=== PATIENT | female | born 1965 | race Caucasian/White ===

== ENCOUNTER 2024-12-18 09:14 | Outpatient (AMB) | payer BC, SELFPAY ==
--- NOTE | 2024-12-18 09:18 | MHC.OFFVIS ---
Vital Signs 12/18/24 09:21 Height 5 ft 8 in Weight 231 lb BMI 35.1 BP 118/72 Blood Pressure Location Rt brachial Position Sitting Pulse 71 Pulse Source Pulse Oximeter Pulse Oximetry (%) 96 Oxygen Delivery Method Room Air Intake Visit Reasons: ENP-Tremor of both hands Intake Note: patient referred by [facility] for bilateral hand tremors. Allergies No Known Allergies Allergy (Verified 12/18/24 09:22) Medication List - Last Reconciled 12/18/24 by Aneta Lee MD atorvastatin 20 mg PO DAILY blood sugar diagnostic (Accelaloxuch Verio test strips) As directed dapagliflozin propanediol (Farxiga) 10 mg PO DAILY fluoxetine 10 mg PO DAILY glipizide 5 mg PO BID lancets (SatmetrixTouch Delica Plus Lancet) As directed metformin ER 500 mg PO BID omega 8-sda-uhb-fish oil 100-160-1,000 mg (Fish Oil) caps PO HPI Comments Details: 59y/o Right handed female comes for evaluation of michaela hand tremors. she started noticing tremors in her hands about 2 years ago. It is usually in spring and summer when she works outside in her garden . She describes as postural action tremors after she does weeding or any work outside . It lasts few minutes after she comes inside the house - she usually notices when she tries to drink water or juice. No head tremors voice tremors, no stiffness or slowness. she denies neck pain , no family h/o tremors. she also reports dizziness when she stands up after weeding. she has h/o sleep apnea on CPAP. [facility] Medical History (Updated 12/18/24 @ 10:18 by Aneta Lee MD) Occasional tremors Skin lesion of scalp Allergic rhinitis Palpitations Chronic bilateral low back pain Heart murmur Anemia Depression with anxiety Surgical History [place] teeth removed H/O endoscopy H/O: hysterectomy Hx of colonoscopy Family History Father CAD (coronary artery disease) Heart disease Brother Thyroid cancer Maternal Aunt Pancreatic cancer Social History Alcohol intake: never Patient Tobacco Use Status: Never used Tobacco Physical Exam Vital Signs: Last Vital Signs Pulse 71 12/18/24 09:21 BP 118/72 12/18/24 09:21 Pulse Ox 96 12/18/24 09:21 Oxygen Delivery Method Room Air 12/18/24 09:21 BMI result Body Mass Index 35.1 Const General: cooperative, healthy appearing, comfortable and no acute distress Nutritional Appearance: obese Orientation/consciousness: patient oriented x3 Eyes Pupils: Equal, round and reactive pupils present Neck Neck: Yes no meningeal signs Neuro Other: No rest or action tremors Mild tremors when she was grasping my fingers General: patient oriented x3, gait normal, tone normal, moves all extremities, no meningeal signs and no focal motor deficits Cranial nerves: Yes Facial sensation intact/muscles of mastication intact, Yes Equal, round and reactive pupils present, Yes Bilaterally intact EOM present, Yes Nystagmus not present, Yes Normal facial strength present, Yes Midline tongue present, Yes Symmetric palate elevation present and Yes Ability to bilaterally elevate shoulders present Cognition (Neuro): normal cognition Gait exam (Neuro): Normal gait present Motor exam (neuro): 5/5 motor strength present throughout and Normal motor muscle tone present throughout Deep tendon reflexes (DTR's): Right triceps reflex intensity grade: 2+, Left triceps reflex intensity grade: 2+, Rt Biceps (C5, C6): 2+, Left biceps reflex intensity grade: 2+, Right brachioradialis reflex intensity grade: 2+, Left brachioradialis reflex intensity grade: 2+, Right patellar reflex intensity grade: 2+ and Left patellar reflex intensity grade: 2+ Coordination: [id number] test normal, [id number] test normal and tandem gait normal Assessment & Plan Assessment & Plan (1) Occasional tremors: Comment: exaggerated physiological tremors Code(s): R25.1 - Tremor, unspecified Category: Medical Plan No evidence of parkinsons on todays exam. Suggested clinical follow up if tremors worsen Suggested to maintain hydration during gardening to prevent postural dizziness. Coding Level of Care Code New Pt Level 4 (18488) Diagnoses Occasional tremors R25.1
[2024-12-18 09:21] VITALS: BP 118/72; PULSE 71; O2SAT 96; BMI 35.1
--- OUTSIDE RECORDS SUMMARY | 2024-12-18 09:57 | XMS_ITS | Encounter Summary ---
Author Organization [facility] Address [address] [place] [id number] Care Team Providers Care Logistics Director Name Role Phone Zana Lee MD Primary Care Provider [phone] Donte Cheung MD Unavailable Rashid Louis OD Unavailable [phone] Encounter Details Date Type Department Care Team (Late Contact Info) Description 06/25/[address] [facility] Endocrinology [address] [phone] Ashutosh Garcia RN [address] [place] [address] Social History Tobacco Use Types Packs/Day Years Used Date Smoking Tobacco: Never Smokeless Tobacco: Never Alcohol Use Standard Drinks/Week Comments Yes 0 (1 standard drink = 0.6 oz pur e alcohol) rare Sex and Gender Information Value Date Recorded Sex Assigned at Female 12/10/2023 10:31 AM EST Gender Identity Female 12/10/2023 10:31 AM EST Sexual Orientation Heterosexual (straight) 12/10 10:31 AM EST documented as of this encounter Plan of Treatment Upcoming Encounters Date Type Department Care Team (Late Contact Info) Description 02/11/2025 3:15 PM EDT Office Visit [facility] Endocrinology [address] [phone] Donte Cheung MD [address] [place] [id number] documented as of this encounter Visit Diagnoses Not on filedocumented in this encounter Care Teams Logistics Director Relationship Specialty Start Date End Date Zana Lee MD [address] [place] [address] PCP - General Internal Medicine 08/09/18 Donte Cheung MD [address] [place] [address] Endocrinology 12/10/23 Rashid Louis OD [address] [place] [address] 05/09/24 documented as of this encounter
--- OUTSIDE RECORDS SUMMARY | 2024-12-18 09:57 | XMS_ITS ---
Author Name [facility] Organization Unknown Results Test Name/Text Value Interpretation Date Range Source Lipase SerPl-cCnc 47unit/L Normal [id number] 11 - 82 [facility] AST SerPl-cCnc 28unit/L Normal [id number] 5 - 40 [facility] ALT SerPl-cCnc 45unit/L Normal [id number] 7 - 52 [facility] Creat SerPl-mCnc 0.73mg/dL Normal [id number] 0.5 - 1 [facility] CO2 SerPl-sCnc 29mmol/L Normal [id number] 24 - 32 [facility] eGFRcr SerPlBld CKD-EPI 2020 96mL/min/1.73m2 Normal [id number] - [facility] Potassium SerPl-sCnc 4.1mmol/L Normal [id number] 3.5 - 5.1 [facility] Bilirub SerPl-mCnc 0.6mg/dL Normal [id number] 0.3 - 1 [facility] Calcium SerPl-mCnc 9.3mg/dL Normal [id number] 8.4 - 10 .2 [facility] BUN SerPl-mCnc 11mg/dL Normal [id number] 7 - 17 [facility] ALP SerPl-cCnc 74unit/L Normal [id number] 34 - 104 [facility] Chloride SerPl-sCnc 104mmol/L Normal [id number] 98 - 10 7 [facility] BUN/Creat SerPl 15.1 Normal [id number] 12 - 20 [facility] Albumin SerPl-mCnc 4.2g/dL Normal [id number] 3.5 - 5 [facility] Prot SerPl-mCnc 7.7g/dL Normal [id number] 6.4 - 8.5 [facility] Sodium SerPl-sCnc 139mmol/L Normal [id number] 135 - 145 [facility] Anion Gap SerPl-sCnc 6 Normal [id number] 5 - 14 [facility] Glucose SerPl-mCnc 108mg/dL Normal [id number] 70 - 199 [facility] pH Ur 7pH Normal [id number] 5 - 8 [facility] H Prot Ur Strip-mCnc Negative Normal [id number] - [facility] Leukocyte esterase Ur Ql Strip Negative Normal [id number] - [facility] Glucose Ur Ql >=1000 Abnormal [id number] - [facility] Nitrite Ur Ql Negative Normal [id number] - [facility] Hgb Ur Ql Negative Normal [id number] - [facility] H Color Ur Yellow Normal [id number] - [facility] H Clarity Ur Clear Normal [id number] - [facility] Ketones Ur-mCnc Negative Normal [id number] - [facility] Sp Gr Ur 1.01 Normal [id number] 1.005 - 1.03 [facility] Monocytes # Bld Auto 0.59K/mcL Normal [id number] 0 - 0.8 [facility] Neutrophils # Bld Auto 3.72K/mcL Normal [id number] 1.8 - 7.8 [facility] Eosinophil # Bld Auto 0.12K/mcL Normal [id number] 0 - 0.5 [facility] MCHC RBC Auto-mCnc 35.4g/dL Normal [id number] 32 - 36 [facility] Monocytes/leuk NFr Bld Auto 8.7% Normal [id number] 2 - 12 [facility] Basophils # Bld Auto 0.03K/mcL Normal [id number] 0 - 0.2 [facility] WBC # Bld Auto 6.8K/mcL Normal [id number] 4 - 10.5 [facility] Hct VFr Bld Auto 39.6% Normal [id number] 37 - 47 [facility] RDW RBC Auto-Rto 12.4% Normal [id number] 12.1 - 16. 2 [facility] PMV Bld Auto 9.9FL Normal [id number] 7.4 - 11.4 [facility] Eosinophil/leuk NFr Bld Auto 1.8% Normal [id number] 0 - 6 [facility] MCH RBC Qn Auto 29.2pcg Normal [id number] 25 - 33 [facility] Basophils/leuk NFr Bld Auto 0.4% Normal [id number] 0 - 2 [facility] Lymphocytes # Bld Auto 2.33K/mcL Normal [id number] 1 - 3.2 [facility] RBC # Bld Auto 4.8M/mcL Normal [id number] 4.2 - 5.4 [facility] Neutrophils/leuk NFr Bld Auto 54.6% Normal [id number] 44 - 74 [facility] Platelet # Bld Auto 300K/mcL Normal [id number] 150 - 4 50 [facility] MCV RBC Auto 82.5FL Normal [id number] 78 - 100 [facility] Lymphocytes/leuk NFr Bld Auto 34.2% Normal [id number] 20 - 48 [facility] Hgb Bld-mCnc 14g/dL Normal [id number] 12.5 - 16 [facility] History of Medication Use Medication Directions Dispensed Refills Start Date End Date Stat us FLUoxetine HCl, PMDD, (SARAFEM) 10 MG Tab tablet Take 1 tablet by mouth. active glipizide 5 mg tablet ac tive fenofibrate 160 mg tablet Take 1 tablet every day by oral route. 4 completed Farxiga 10 mg tablet act irma atorvastatin 20 mg tablet active Farxiga 10 mg tablet act irma Fish Oil 120 mg-180 mg capsule Take by oral route. 4 completed azithromycin 250 mg tablet TAKE 2 TABLET BY MOUTH ON DAY ONE THEN 1 TABLET BY MOUTH DAILY UNTIL GONE 4 completed Glucagon 1 MG/0.2ML Solution Auto-injector Inject 1 mg under the skin as needed (Admininister for severe low BG). 06/29/2024 active Tricor 145 mg tablet Take 1 tablet every day by oral route. 7 completed cyanocobalamin (VITAMIN B-12) 100 mcg tablet Take 0.5 tablets (50 mcg total) by mouth. active omega-3 fatty acids-fish oil 300-500 mg capsule Take 1 capsule by mouth 1 (one) time each day. active Gynazole-1 2 % vaginal cream Insert by vaginal route for 1 day. 05/03/2016 7 completed dapagliflozin (Farxiga) 10 MG tablet Take 1 tablet (10 mg total) by mouth every morning. 05/12/2024 active multivitamin (MULTIPLE VITAMINS ORAL) Take 1 tablet by mouth 1 (one) time each day. active atorvastatin 20 mg tablet active OneTouch Delica Plus Lancet 33 gauge USE DIRECTED TO TEST 2 TIMES A DAY 4 active cholecalciferol (VITAMIN D-3) 25 mcg (1,000 unit) tablet Take 1 tablet (1,000 Units total) by mouth 1 (one) time each day. active amoxicillin 875 mg-potassium clavulanate 125 mg tablet TAKE 1 TABLET BY MOUTH EVERY 12 HOURS FOR 7 DAYS 4 completed clindamycin phosphate 1 % topical solution APPLY TOPICALLY TO THE SCALP EVERY NIGHT THEN NEEDED active amoxicillin 875 mg-potassium clavulanate 125 mg tablet TAKE 1 TABLET BY MOUTH EVERY 12 HOURS FOR 7 DAYS 4 completed cyanocobalamin, vitamin B-12, 1,000 mcg lozenge Take by mouth daily. active Farxiga 5 mg tablet 4 active fenofibrate (LOFIBRA) 160 mg tablet Take 1 tablet (160 mg total) by mouth. 12/09/2019 active metformin ER 500 mg tablet,extended release 24 hr active glipizide 5 mg tablet ac tive Zyrtec 10 mg capsule Take by oral route. Take by oral route. completed Farxiga 5 mg tablet 4 completed triamcinolone acetonide 40 mg/mL suspension for injection Take 40 mg by injection route. 02/22/2024 4 active glipiZIDE (GLUCOTROL) 5 MG tablet Take 1 tablet (5 mg total) by mouth 2 (two) times a day before meals. 02/05/2024 active Continuous Glucose Sensor (FreeStyle Carol 3 Sensor) [facility] USE DIRECTED& CHANGE EVERY 14 DAYS 11/04/2023 active oxycodone 5 mg tablet 1 tablet every 6-8 hours as needed, do not start until after surgery 10/06/2024 4 completed meloxicam 15 mg tablet 1 tablet every day in the morning for 7 days, Start the day after surgery 4 completed Prozac 10 mg capsule Take 1 capsule every day by oral route. Take 1 capsule every day by oral route. completed cephalexin 500 mg capsule 1 capsule every 6 hours, start evening of surgical procedure. do not take prior to surgery. 4 completed Allergies Allergen Reaction Severity Comment Documented Date Source Statu s NO KNOWN ALLERGY (SITUATION) 01/02/2014 [facility] active Problems Problem Status Onset Date Problem Type Date of Resolution Source Sleep apnea active ProblemAct [facility] Calcific tendinitis of right shoulder active 2024-06-03 ProblemAct [facility] Low HDL (under 40) active 2018-05-[address] Problem[address] [facility] Anxiety active 2017-12-03 ProblemAct [facility] Depression active 2017-12-03 Problem[address] [facility] H Palpitations active 2015-05-17 ProblemAct [facility] Tinea cruris active ProblemAct [facility] H Vaginitis active ProblemAct [facility] Tendinitis of right biceps brachii active 2024-08-29 ProblemAct [facility] Impingement syndrome of right shoulder region active 2024-06-03 ProblemAct [facility] Chronic idiopathic urticaria active 2018-08-20 ProblemAct [facility] Type 2 diabetes mellitus with hyperglycemia, without long-term current use of insulin active 2024-05-12 ProblemAct [facility] Type 2 diabetes mellitus without complication, without long-term current use of insulin active 2024-05-12 ProblemAct [facility] Pain of right shoulder joint active 2024-01-28 ProblemAct [facility] Obstructive sleep apnea syndrome active 2016-12-15 ProblemAct [facility] Allergic rhinitis active 2017-12-03 ProblemAct [facility] Calculus of gallbladder without cholecystitis without obstruction active EncounterDiagnosisAct [facility] Right upper quadrant abdominal pain active EncounterDiagnosisAct [facility] Chronic low back pain active 2017-12-03 ProblemAct [facility] Murmur active 2018-05-30 ProblemAct [facility] Immunizations Vaccine Date Source Lot Number Status Influenza, MDCK, quadrivalent, PF 07/25/2022 [facility] [id number] completed Influenza, split virus, quadrivalent, PF 08[facility]03/20[id number] Tdap 10/13/2022 [facility] [id number] completed Influenza, recombinant, trivalent, PF 08/23/2020 [facility] [id number] completed zoster recombinant 11/10/2022 [facility] [id number] [facility] zoster recombinant 03/02/2023 [facility] [id number] [facility]
--- OUTSIDE RECORDS SUMMARY | 2024-12-18 09:58 | XMS_ITS | Clinical Summary ---
Author Organization [facility] Address [address] [place] [address] Phone Care Team Providers Care Tipple Supervisor Name Role Phone Zana Lee MD Primary Care Provider [phone] Allergies No known active allergies Medications dapagliflozin propanediol (FARXIGA) 10 mg tablet Take by mouth. Active cyanocobalamin (VITAMIN B-12) 100 mcg tablet Take 0.5 tablets (50 mcg total) by mouth. Active metFORMIN XR (GLUCOPHAGE-XR) 500 mg 24 hr tablet Take 1 tablet (500 mg total) by mouth. Active fenofibrate (LOFIBRA) 160 mg tablet Take 1 tablet (160 mg total) by mouth. 12/09/2019 Active cetirizine (ZyrTEC) 10 mg tablet Take 1 tablet (10 mg total) by mouth. Active cholecalciferol (VITAMIN D-3) 25 mcg (1,000 unit) tablet Take 1 tablet (1,000 Units total) by mouth 1 (one) time each day. Active omega-3 fatty acids-fish oil 300-500 mg capsule Take 1 capsule by mouth 1 (one) time each day. Active multivitamin (MULTIPLE VITAMINS ORAL) Take 1 tablet by mouth 1 (one) time each day. Active famotidine (PEPCID) 20 mg/2 mL oral solution Take by mouth. Active FLUoxetine (PROzac) 10 mg capsule Take 1 capsule (10 mg total) by mouth. Active cyanocobalamin, vitamin B-12, 1,000 mcg lozenge Take by mouth daily. Active Active Problems Problem Noted Date Diagnosed Date Low HDL (under 40) 05/30/2018 Murmur 05/30/2018 Chronic low back pain 12/03/2017 Depression 12/03/2017 Anxiety 12/03/2017 Allergic rhinitis 12/03/2017 Obstructive sleep apnea syndrome 12/15/2016 Palpitations 05/17/2015 Surgical History Surgery Date Site/Laterality Comments HYSTERECTOMY AGE 46 PROCEDURE:HYSTERECTOMY Medical History Medical History Date Comments History of ETT 2007 DX:History of ET T;COMMENT:9 min 95% nl History of echocardiogram 2005 DX:His tory of echocardiogram;COMMENT:lv fx nl History of ETT 10/10 DX:History of ET T;COMMENT:nl ett 11 min 90% History of echocardiogram 10/10 DX:His tory of echocardiogram;COMMENT:lv hyperdynamic no outflow History of loop recorder 11/11 DX:Hist ory of loop recorder;COMMENT:neg HLD (hyperlipidemia) DX:HLD (hyp erlipidemia) Sleep apnea DX:Sleep apnea;C OMMENT:cpap History of stress test 05/2017 DX:Histor y of stress test;COMMENT:10.5 min 85% pmhr no cp or ecg change Family History Medical History Relation Name Comments Thyroid disease Brother Coronary artery disease Other 1 Diabetes Other 2 BRCA 1/2 Neg Hx Breast cancer Neg Hx Cancer Neg Hx Colon cancer Neg Hx Endometrial cancer Neg Hx Ovarian cancer Neg Hx Relation Name Status Comments Brother Other 1 Other 2 Social History Tobacco Use Types Packs/Day Years Used Date Smoking Tobacco: Never Smokeless Tobacco: Never Alcohol Use Standard Drinks/Week Comments No 0 (1 standard drink = 0.6 oz pur e alcohol) Comments Unknown Sex and Gender Information Value Date Recorded Sex Assigned at Not on file Legal Sex Female 8:31 PM EST Gender Identity Not on file Sexual Orientation Not on file Obstetrics History Last Filed Vital Signs Vital Sign Reading Time Taken Comments Blood Pressure 137/75 09/06/2024 11:54 AM EST Pulse 73 09/06/2024 11:54 AM EST Temperature 36.9 ??C (98.4 ??F) 09/06/2024 11:[address] Respiratory Rate 18 09/06/2024 11:54 AM EST Oxygen Saturation 98% 09/06/2024 11:54 AM EST Inhaled Oxygen Concentration - - Weight 103 kg (227 lb) 09/06/2024 11:54 AM EST Height 172.7 cm (5' 8 ) 09/06/2024 11:54 AM EST Body Mass Index 34.52 09/06/2024 11:54 AM EST Plan of Treatment Upcoming Encounters Date Type Department Care Team (Late st Contact Info) Description 01/02/2025 2:00 PM EST Office Visit Pulmonolgy - [place] [address] [facility] [address] [place] [phone] Kai Lee MD [address] [facility] [address] [place] [address] Health Maintenance Due Date Last Done Comments Diabetes: Annual Foot Exam 1977 Diabetes: Annual Retina Eye Exam 1977 Hepatitis B Vaccines (1 of 3 - 19+ 3-dose series) 1986 Cervical Cancer Screening: Pap Smear 02/10/1988 Pneumococcal Vaccine: 50+ Years (1 of 1 - PCV) 2017 Cholesterol Screening (Lipid Panel) 09/30/2022 Colorectal Cancer Screening: Colonoscopy 09/30/2022 Depression Screening 09/30/2022 HIV Screening 09/30/2022 Hepatitis C Screening 09/30/2022 Social Influencers of Health Screening 09/30/2022 COVID-19 Vaccine ( season) 2024 02/06/2021, 01/16/2021 Diabetes: Blood Sugar Control Test (HGBA1C) 09/06/2024 Diabetes: Annual GFR (Glomerular Filtration Rate) 09/06/2025 09/06/2024 Diabetes: Annual Urine Albumin-Creatinine Ratio (uACR) 09/24/2025 09/24/2024, 05/08/2024 Breast Cancer Screening 03/31/2026 03/31/20 24, 03/30/2023, 03/22/2022, Additional history exists DTaP,Tdap,and Td Vaccines (2 - Td or Tdap) 10/13/2032 10/13/2022 Zoster Vaccines Completed 03/02/2023, 11/10/2022 Influenza Vaccine Completed 08/11/2024, , 08/03/2021, Additional history exists HIB Vaccines Aged Out No longer eligi ble based on patient's age to complete this topic HPV Vaccines Aged Out No longer eligi ble based on patient's age to complete this topic Hepatitis A Vaccines Aged Out No long er eligible based on patient's age to complete this topic IPV Vaccines Aged Out No longer eligi ble based on patient's age to complete this topic MMR Vaccines Aged Out No longer eligi ble based on patient's age to complete this topic Meningococcal ACWY Vaccine Aged Out N o longer eligible based on patient's age to complete this topic Meningococcal B Vacine Aged Out No lo nger eligible based on patient's age to complete this topic Pneumococcal Vaccine: Pediatrics (0 to 5 Years) and At-Risk Patients (6 to 64 Years) Aged Out No longer eligible based on patient's age to complete this topic RSV Immunization Patients Under 20 months Aged Out No longer eligible based on patient's age to complete this topic Varicella Vaccines Aged Out No longer eligible based on patient's age to complete this topic Procedures Procedure Name Priority Date/Time Associated Diagnosis Comments COMPREHENSIVE METABOLIC PANEL STAT 09/06/2024 12:14 PM EST MAMMOGRAM SCREENING BILATERAL 3D MAURO WITH CAD Routine 03/31/2024 11:16 AM EDT Encounter for screening mammogram for malignant neoplasm of breast from Last 3 Months or Most Recently Relevant to Health Maintenance Results * Comprehensive metabolic panel (09/06/2024 12:14 PM EST) Sodium 139 135 - 145 mmol/L LAB CHEMISTRY METHOD 09/06/2024 12:44 PM [facility] Potassium 4.1 3.5 - 5.1 mmol/L LAB CHEMISTRY METHOD 09/06/2024 12:44 PM [facility] Chloride 104 98 - 107 mmol/L LAB CHEMISTRY METHOD 09/06/2024 12:44 PM [facility] CO2 29 24 - 32 mmol/L LAB CHEMISTRY METHOD 09/06/2024 12:44 PM [facility] Anion Gap 6 5 - 14 LAB CHEMISTRY METHOD 09/06/2024 12:44 PM [facility] Glucose 108 70 - 199 mg/dL LAB CHEMISTRY METHOD 09/06/2024 12:44 PM [facility] BUN 11 7 - 17 mg/dL LAB CHEMISTRY METHOD 09/06/2024 12:44 PM [facility] Creatinine 0.73 0.50 - 1.00 mg/dL LAB CHEMISTRY METHOD 09/06/2024 12:44 PM [facility] eGFR 96 >=60 mL/min/1. 73m2 LAB CHEMISTRY METHOD 09/06/2024 12:44 PM [facility] Comment:Calculation based on the??Chronic Kidney Disease Epidemiology Collaboration (CKD-EPI) equation refit??without adjustment for race. BUN/Creatinine Ratio 15.1 12.0 - 20.0 LAB CHEMISTRY METHOD 09/06/2024 12:44 PM [facility] Calcium 9.3 8.4 - 10.2 mg/dL LAB CHEMISTRY METHOD 09/06/2024 12:44 PM [facility] AST (SGOT) 28 5 - 40 unit/L LAB CHEMISTRY METHOD 09/06/2024 12:44 PM [facility] ALT (SGPT) 45 7 - 52 unit/L LAB CHEMISTRY METHOD 09/06/2024 12:44 PM [facility] Alkaline Phosphatase 74 34 - 104 unit/L LAB CHEMISTRY METHOD 09/06/2024 12:44 PM [facility] Total Protein 7.7 6.4 - 8.5 g/dL LAB CHEMISTRY METHOD 09/06/2024 12:44 PM [facility] Albumin 4.2 3.5 - 5.0 g/dL LAB CHEMISTRY METHOD 09/06/2024 12:44 PM [facility] Total Bilirubin 0.6 0.3 - 1.0 mg/dL LAB CHEMISTRY METHOD 09/06/2024 12:44 PM EST [facility] Blood Venous blood specimen / Unknown Venipuncture / Unknown 09/06/2024 12:14 PM EST 09/06/2024 12:20 PM EST Chris Ritter MD LAB BLOOD ORDERABLES Final Result [facility] [address] [place] [address], * MAMMOGRAM SCREENING BILATERAL 3D MAURO WITH CAD (03/31/2024 11:16 AM EDT) Anatomical Region Laterality Modality Mammography 02/28/2024 10:3 0 AM EDT Narrative 04/02/2024 11:04 AM EDT This is a summary report. The complete report is available in the patient's medical record. If you cannot access the medical record, please contact the sending organization for a detailed fax or copy. EXAM PERFORMED: ??MAMMOGRAM SCREENING BILATERAL 3D MAURO WITH CAD EXAM HISTORY: Screening Exam. No palpable abnormality. COMPARISON: 2022, 2021, 2020, 2019 TECHNIQUE: Bilateral full field digital mammography with synthesized (2D) the and Tomosynthesis (3-D) was performed using standard CC and MLO projections. Mammogram was interpreted in correlation with CAD and Tomosynthesis. BREAST DENSITY: There are scattered fibroglandular densities (approximately 25- 50% glandular, B). FINDINGS: No suspicious masses, grouped microcalcifications, or architectural distortion are identified. Typically benign asymmetries. No axillary lymphadenopathy. IMPRESSION: 1. No mammographic evidence of malignancy 2. Scattered fibroglandular densities BI-RADS Category 2: Benign 3342F RECOMMENDATION: Routine mammography screening in one year. The results of this examination have been communicated to the patient through a lay letter in accordance with the Mammography Quality Standards Act. Report reviewed and signed by : Dr. Alexis Shelley MD on 04/02/2024 11:04 AM. Workstation Name - [id number] Procedure Note Alexis Shelley MD - 08/12/2024 This is a summary report. The complete report is available in thepatient's medical record. If you cannot access the medical record, pleasecontact the sending organization for a detailed fax or copy. EXAM PERFORMED: MAMMOGRAM SCREENING BILATERAL 3D MAURO WITH CAD EXAM HISTORY: Screening Exam. No palpable abnormality. COMPARISON: 2022, 2021, 2020, 2019 TECHNIQUE: Bilateral full field digital mammography with synthesized (2D)the and Tomosynthesis (3-D) was performed using standard CC and MLOprojections. Mammogram was interpreted in correlation with CAD andTomosynthesis. BREAST DENSITY: There are scattered fibroglandular densities(approximately 25- 50% glandular, B). FINDINGS: No suspicious masses, grouped microcalcifications, orarchitectural distortion are identified. Typically benign asymmetries. Noaxillary lymphadenopathy. IMPRESSION: 1. No mammographic evidence of malignancy 2. Scattered fibroglandular densities BI-RADS Category 2: Benign 3342F RECOMMENDATION: Routine mammography screening in one year. The results of this examination have been communicated to the patientthrough a lay letter in accordance with the Mammography Quality StandardsAct. Report reviewed and signed by : Dr. Alexis Shelley MD on 04/02/2024 11:04AM. Workstation Name - [id number] Jaden Sim MD IMG BI PROCEDURES Final Resu lt from Last 3 Months or Most Recently Relevant to Health Maintenance Insurance [facility] Care Teams Tipple Supervisor Relationship Specialty Start Date End Date Zana Lee MD PCP - General Internal Medicine 05/17/15
--- OUTSIDE RECORDS SUMMARY | 2024-12-18 09:58 | XMS_ITS | Encounter Summary ---
Author Organization [facility] Address [address] [place] [id number] Care Team Providers Care Forest Nursery Supervisor Name Role Phone Zana Lee MD Primary Care Provider [phone] Dnote Cheung MD Unavailable Rashid Louis OD Unavailable [phone] Encounter Details Date Type Department Care Team (Late st Contact Info) Description 09/06/2024 Scanned Document [address] [place] [phone] Provider, Generic Social History Tobacco Use Types Packs/Day Years [...] Care Team (Late st Contact Info) Description 02/11/2025 3:15 PM EDT Office Visit [facility] Endocrinology [address] [place] [phone] Donte Cheung MD [address] [place] [address] [address] [place] [address] documented as of this encounter Visit Diagnoses Not on filedocumented in this encounter Care Teams Forest Nursery Supervisor Relationship Specialty Start Date End Date Zana Lee MD [address] [place] [address] PCP - General Internal Medicine 08/09/18 Donte Cheung MD [address] [place] [address] Endocrinology 12/10/23 Rashid Louis OD [address] [place] [address] 05/09/24 documented as of this encounter
--- OUTSIDE RECORDS SUMMARY | 2024-12-18 09:58 | XMS_ITS | Encounter Summary ---
Author Organization [facility] Address [address] [place] [address] Care Team Providers Care Mid Teacher Name Role Phone Zana Lee MD Primary Care Provider [phone] Donte Chueng MD Unavailable Rashid Louis OD Unavailable [phone] Encounter Details Date Type Department Care Team (Late Contact Info) Description 01/14/2024 Telephone [facility] [address] [place] [phone] Sarah Beltran [address] [place] [phone] Social History Tobacco Use Types Packs/Day Years [...] AM EST documented as of this encounter Miscellaneous Notes * Telephone Encounter - Sarah Beltran - 01/14/2024 10:09 AM EDT MNT FU (30min) with Sarah: 03/04/24, 8AM documented in this encounter Plan of Treatment Upcoming Encounters Date Type Department Care Team (Late st Contact Info) Description 02/11/2025 3:15 PM EDT Office Visit [facility] Endocrinology [place] [address] [place] [address] Donte Cheung MD [address] [place] [address] documented as of this encounter Visit Diagnoses Not on filedocumented in this encounter Care Teams Mid Teacher Relationship Specialty Start Date End Date Zana Lee MD [address] [place] [address] PCP - General Internal Medicine 08/09/18 Donte Cheung MD [address] [facility] [address] [place] [address] Endocrinology 12/10/23 Rashid Louis OD [address] [place] [address] 05/09/24 documented as of this encounter
--- OUTSIDE RECORDS SUMMARY | 2024-12-18 09:58 | XMS_ITS | Clinical Summary ---
Author Organization [facility] Address [address] [place] [address] Care Team Providers Care Wigs Salesperson Name Role Phone Zana Lee MD Primary Care Provider [phone] Allergies No known active allergies Medications Medication Sig Dispensed Refills Start Date End Date Status FLUoxetine (PROZAC) 10 MG capsule Take 10 mg by mouth daily. 0 Active IRON, FERROUS GLUCONATE, PO Take 1 tablet by mouth daily. 0 Active [place]-3 Fatty Acids (FISH OIL) 1000 MG CAPS Take 1 capsule by mouth daily. 0 Active Multiple Vitamins-Minerals (MULTIVITAMIN PO) Take 1 tablet by mouth daily. 0 Active cetirizine (ZYRTEC) 10 MG tablet Take 10 mg by mouth 2 (two) times a day. 0 Active Famotidine (PEPCID PO) Take by mouth. 0 Active cholecalciferol (VITAMIN D3) 1000 UNITS tablet Take 2,000 Units by mouth daily. 0 Active Cyanocobalamin (VITAMIN B 12) 100 MCG LOZG Take by mouth daily. 0 Active UNABLE TO FIND C-Pap at HS 0 Active fenofibrate (TRIGLIDE) 160 MG tablet TAKE 1 TABLET DAILY 90 tablet 3 12/09/2019 Active Active Problems Problem Noted Date Diagnosed Date Murmur 05/30/2018 Low HDL (under 40) 05/30/2018 Palpitations 05/17/2015 Family History Medical History Relation Name Comments Thyroid disease Brother Coronary artery disease Unknown 1 Diabetes Unknown 2 BRCA 1/2 Neg Hx Breast cancer Neg Hx Cancer Neg Hx Colon cancer Neg Hx Endometrial cancer Neg Hx Ovarian cancer Neg Hx Relation Name Status Comments Brother Unknown 1 Unknown 2 Social History Tobacco Use Types Packs/Day Years Used Date Smoking Tobacco: Never Smokeless Tobacco: Never Alcohol Use Standard Drinks/Week Comments No 0 (1 standard drink = 0.6 oz pur e alcohol) Sex and Gender Information Value Date Recorded Sex Assigned at Not on file Gender Identity Not on file Sexual Orientation Not on file Job Start Date Occupation Industry Not on file Not on file Not on file Last Filed Vital Signs Vital Sign Reading Time Taken Comments Blood Pressure 120/80 06/25/2019 9:28 AM EDT Pulse 65 06/25/2019 9:28 AM EDT Temperature - - Respiratory Rate - - Oxygen Saturation 99% 06/25/2019 9:28 AM EDT Inhaled Oxygen Concentration - - Weight 102.5 kg (226 lb) 06/25/2019 9:28 AM EDT Height 175.3 cm (5' 9 ) 06/25/2019 9:28 AM EDT Body Mass Index 33.37 06/25/2019 9:28 AM EDT Plan of Treatment Health Maintenance Due Date Last Done Comments Hepatitis B Vaccines (1 of 3 - 3-dose series) 1967 Hepatitis C Screening 1967 COVID-19 Vaccine (#1) 1967 Depression Screening 1979 BMI Counseling 1985 Preventative Health Evaluation 1985 DTap / Tdap / Td (1 - Tdap) 1986 Cervical Cancer Screening (Pap Smear) 02/10/1988 Colon Cancer Screening (Colonoscopy) 02/10/2012 Shingrix-Zoster Vaccine (1 of 2) 2017 Influenza Vaccine (#1) 2024 Breast Cancer Screening (Mammogram) 03/31/2026 03/31/2024, 03/30/2023, 03/22/2022, Additional history exists Pneumococcal Vaccine Aged Out No long er eligible based on patient's age to complete this topic RSV Ped < 20 months Aged Out No longe r eligible based on patient's age to complete this topic Advance Directives For more information, please contact: [phone] Documents on File Type Date Recorded Patient Lead Auditor Expl anation Power of Sole Tier 05/17/2015 3:56 PM Care Teams Wigs Salesperson Relationship Specialty Start Date End Date Zana Lee MD [address] [facility], [place] [address] PCP - General Internal Medicine 05/17/15
--- OUTSIDE RECORDS SUMMARY | 2024-12-18 09:58 | XMS_ITS | Clinical Summary ---
Author Organization [facility] Address [address] [place] [address] Care Team Providers Care Double Reamer Operator Name Role Phone Zana Lee MD Primary Care Provider [phone] Donte Cheung MD Unavailable Rashid Louis OD Unavailable [phone] Allergies Active Allergy Reactions Criticality Noted Date Comments Beef-Derived Drug Products Hives Medium 4 Egg-Derived Products Diarrhea Low 12/10/2023 Medications Medication Sig Dispensed Refills Start Date End Date Status cetirizine (ZyrTEC) 10 MG tablet Take 1 tablet (10 mg total) by mouth. Active cholecalciferol (VITAMIN D3) 1000 units tablet Take 1 tablet (1,000 Units total) by mouth. Active famotidine (PEPCID) 20 MG tablet Take 1 tablet (20 mg total) by mouth. Active fenofibrate (TRIGLIDE) 160 MG tablet Take 1 tablet (160 mg total) by mouth. Active Multiple Vitamins-Minerals (MULTIVITAMIN ADULT) Tab Take 1 tablet by mouth. Active omega-3 fatty acids (FISH OIL) 1000 MG Cap capsule Take 1 capsule (1,000 mg total) by mouth. Active Calcium Carb-Cholecalciferol (Calcium 1000 + D) 1000-20 MG-MCG Tab Active FLUoxetine (PROzac) 20 MG capsule Active Lancets (OneTouch Delica Plus [id number]) Misc USE DIRECTED TO TEST 2 TIMES A DAY 11/04/2023 Active Probiotic Product (PROBIOTIC-10 PO) Active Glucagon 1 MG/0.2ML Solution Auto-injectorIndicat ions:Type 2 diabetes mellitus without complication, without long-term current use of insulin ([facility]) Inject 1 mg under the skin as needed (Admininister for severe low BG). 0.4 mL 3 06/29/2024 Active dapagliflozin (Farxiga) 10 MG tabletIndications:Ty pe 2 diabetes mellitus with hyperglycemia, without long-term current use of insulin ([facility]) Take 1 tablet (10 mg total) by mouth every morning. 90 tablet 1 09/30/2024 Active Continuous Glucose Sensor (FreeStyle Carol 3 Sensor) MiscIndications:Type 2 diabetes mellitus with hyperglycemia, without long-term current use of insulin ([facility]) USE DIRECTED& CHANGE EVERY 14 DAYS 2 each 1 09/30/2024 Active metFORMIN (GLUCOPHAGE-XR) 500 MG 24 hr tabletIndications:Ty pe 2 diabetes mellitus with hyperglycemia, without long-term current use of insulin ([facility]) 2 tablets with dinner. Swallow whole. Do not crush, break or chew. 90 tablet 1 09/30/2024 Active glipiZIDE (GLUCOTROL) 5 MG tabletIndications:Ty pe 2 diabetes mellitus with hyperglycemia, without long-term current use of insulin ([facility]) Take 1 tablet (5 mg total) by mouth 2 (two) times a day before meals. 90 tablet 1 09/30/2024 Active Continuous Glucose Sensor (FreeStyle Carol 3 Plus Sensor) MiscIndications:Type 2 diabetes mellitus with hyperglycemia, without long-term current use of insulin ([facility]) USE DIRECTED& CHANGE EVERY 14 DAYS 2 each 1 12/05/2024 Active Active Problems Problem Noted Date Diagnosed Date Type 2 diabetes mellitus wit hout complication, without long-term current use of insulin 05/12/2024 Type 2 diabetes mellitus wit h hyperglycemia, without long-term current use of insulin 05/12/2024 Chronic idiopathic urticaria 08/20/2018 Encounters Date Type Department Care Team Description 12/12/2024 [facility] Endocrinology [address] [phone] Donte Cheung MD 12/11/2024 [facility] Endocrinology [address] [phone] Donte Cheung MD Type 2 diabetes mellitus with hyperglycemia, without long-term current use of insulin (HCC) 12/05/2024 Refill [facility] Endocrinology [address] [address] Donte Cheung MD Type 2 diabetes mellitus with hyperglycemia, without long-term current use of insulin (HCC) (Primary Dx) 10/05/2024 Orders Only [facility] Endocrinology [address] [phone] Donte Cheung MD 10/01/2024 Telephone [facility] Endocrinology [address] [phone] Donte Cheung MD MSOT BI 09/30/2024 3:30 PM EST Office Visit [facility] Endocrinology [address] [address] Donte Cheung MD Type 2 diabetes mellitus with hyperglycemia, without long-term current use of insulin ([facility]) (Primary Dx) 09/30/2024 Travel 09/30/2024 Refill [facility] Endocrinology [address] [address] Donte Cheung MD Type 2 diabetes mellitus with hyperglycemia, without long-term current use of insulin ([facility]) from Last 3 Months Family History Medical History Relation Name Comments Lupus Maternal Aunt Diabetes type II Maternal Uncle Diabetes type II Paternal Grandmother Relation Name Status Comments Father Alive Maternal Aunt Maternal Uncle Mother Alive Paternal Grandmother Social History Tobacco Use Types Packs/Day Years Used Date Smoking Tobacco: Never Smokeless Tobacco: Never Tobacco Cessation:Counseling Given: Not Answered Alcohol Use Standard Drinks/Week Comments Yes 0 (1 standard drink = 0.6 oz pur e alcohol) rare Sex and Gender Information Value Date Recorded Sex Assigned at Female 12/10/2023 10:31 AM EST Gender Identity Female 12/10/2023 10:31 AM EST Sexual Orientation Heterosexual (straight) 12/10 10:31 AM EST Last Filed Vital Signs Vital Sign Reading Time Taken Comments Blood Pressure 113/66 09/30/2024 3:23 PM EST Pulse 64 09/30/2024 3:23 PM EST Temperature 36.2 ??C (97.2 ??F) 09/06/2024 10:[address] Respiratory Rate - - Oxygen Saturation 98% 09/30/2024 3:23 PM EST Inhaled Oxygen Concentration - - Weight 103 kg (227 lb) 09/30/2024 3:23 PM EST Height 172.7 cm (5' 8 ) 09/30/2024 3:23 PM EST Body Mass Index 34.52 09/30/2024 3:23 PM EST Plan of Treatment Upcoming Encounters Date Type Department Care Team (Late st Contact Info) Description 02/11/2025 3:15 PM EDT Office Visit [facility] Endocrinology [place] [address] [place] [address] Donte Cheung MD [address] [place] [address] Health Maintenance Due Date Last Done Comments Hepatitis C Virus Screening 1967 Ophthalmology Exam 1977 HIV Screening 02/10/1980 DTaP/Tdap/Td Vaccines (1 - Tdap) 1986 Hepatitis B Vaccines (1 of 3 - 19+ 3-dose series) 1986 Pneumococcal Vaccines 50+ (1 of 2 - PCV) 1986 Pap Smear (Ages 21-65) 02/10/1988 Mammogram 2007 Colonoscopy 02/10/2012 Zoster (Shingles) Vaccine (1 of 2) 2017 COVID-19 Vaccine (3 - 2023-2 5 season) 2024 02/06/2021, 01/16/2021 Hemoglobin A1C 03/24/2025 09/24/2024, 05/08/2024 Creatinine with GFR 09/24/2025 09/24/2024, Lipid Panel 09/24/2025 09/24/2024, 05/08/2024 Microalbumin/Creatinine Rati o Urine 09/24/2025 09/24/2024, 05/08/2024 Foot Exam 09/30/2025 09/30/2024, 05/12/2024 Influenza Vaccine Completed 08/11/2024, , 07/25/2022, Additional history exists Procedures Procedure Name Priority Date/Time Associated Diagnosis Comments MICROALBUMIN, CREATININE, URINE, RANDOM Routine 09/24/2024 9:25 AM EST Type 2 diabetes mellitus with hyperglycemia, without long-term current use of insulin (HCC) LIPID PANEL REFLEX DIRECT LDL Routine 09/24/2024 9:25 AM EST Type 2 diabetes mellitus with hyperglycemia, without long-term current use of insulin (HCC) HEMOGLOBIN A1C Routine 09/24/2024 9:25 AM EST Type 2 diabetes mellitus with hyperglycemia, without long-term current use of insulin (HCC) COMPREHENSIVE METABOLIC PANEL Routine 09/24/2024 9:25 AM EST Type 2 diabetes mellitus with hyperglycemia, without long-term current use of insulin (HCC) from Last 3 Months Results * (ABNORMAL) Lipid Panel Reflex Direct LDL (09/24/2024 9:25 AM EST) Pathologist [facility] Cholesterol, Total 162 <200 mg/dL [facility] Cholesterol, HDL 45(L) > OR = 50 mg/dL [facility] Triglycerides 217(H) <150 mg/dL [facility] Comment: If a non-fasting specimen was collected, consider repeat triglyceride testing on a fasting specimen if clinically indicated. Rosa et al. J. of Clin. Lipidol. 2015;9:129-169. LDL Cholesterol 86 mg/dL (calc) [facility] Comment: Reference range: <100 Desirable range <100 mg/dL for primary prevention; ?? <70 mg/dL for patients with CHD or diabetic patients with > or = 2 CHD risk factors. LDL-C is now calculated using the Edvin-Chaparrita calculation, which is a validated novel method providing better accuracy than the Friedewald equation in the estimation of LDL-C. Edvin HENSON et al. GLO. 2013;310(19): 9991-1773 (http://education.Libretto/faq/XGA571) Cholesterol/HDL Ratio 3.6 <5.0 (calc) [facility] Non HDL Chol. (LDL+VLDL) 117 <130 mg/dL (calc) [facility] Comment: For patients with diabetes plus 1 major ASCVD risk factor, treating to a non-HDL-C goal of <100 mg/dL (LDL-C of <70 mg/dL) is considered a therapeutic option. Blood Blood specimen / Unknown 09/24/2024 9:25 AM EST 09/24/2024 9:27 AM EST Narrative [facility] - 09/25/2024 12:[address] SHILOH TRENT FASTING:YES FASTING: YES Donte Cheung MD LAB BLOOD ORDERABLES Performing Organization Address [facility] de Phone Number [facility] [address] [place] [phone] * Microalbumin, Creatinine, Urine, Random (09/24/2024 9:25 AM EST) Pathologist [facility] Creatinine, Urine, Random 206 20 - 275 mg/dL [facility] Microalbumin, Urine, Random 2.0 See Note: mg/dL [facility] Comment: Reference Range: Reference Range Not established Microalbumin/Creat inine Ratio 10 <30 mg/g creat [facility] Comment: The ADA defines abnormalities in albumin excretion as follows: Albuminuria Category ?Result (mg/g creatinine) Normal to Mildly increased ?? <30 Moderately increased ? 30-299 Severely increased ? > OR = 300 The ADA recommends that at least two of three specimens collected within a 3-6 month period be abnormal before considering a patient to be within a diagnostic category. Urine Voided urine specimen / Unknown 09/24/2024 9:25 AM EST 09/24/2024 9:27 AM EST Narrative [facility] - 09/25/2024 12:[address] SHILOH TRENT FASTING:YES FASTING: YES Donte Cheung MD URINE ORDERABLES Performing Organization Address [facility]/State/ZIP Co de Phone Number [facility] [address] [place] [address] * (ABNORMAL) Hemoglobin A1C (09/24/2024 9:25 AM EST) Hemoglobin A1C 6.3(H) <5.7 % of total Hgb [facility] Comment: For someone without known diabetes, a hemoglobin A1c value between 5.7% and 6.4% is consistent with prediabetes and should be confirmed with a follow-up test. For someone with known diabetes, a value <7% indicates that their diabetes is well controlled. A1c targets should be individualized based on duration of diabetes, age, comorbid conditions, and other considerations. This assay result is consistent with an increased risk of diabetes. Currently, no consensus exists regarding use of hemoglobin A1c for diagnosis of diabetes for children. Blood Blood specimen / Unknown 09/24/2024 9:25 AM EST 09/24/2024 9:27 AM EST Narrative [facility] - 09/25/2024 12:23 AM EST [facility]; DR SHILOH RIVERA FASTING:YES FASTING: YES Donte Cheung MD LAB BLOOD ORDERABLES [facility] [address] [place] [phone] * (ABNORMAL) Comprehensive Metabolic Panel (09/24/2024 9:25 AM EST) Glucose 182(H) 65 - 99 mg/dL [facility] Comment: ? Fasting reference interval For someone without known diabetes, a glucose value >125 mg/dL indicates that they may have diabetes and this should be confirmed with a follow-up test. Blood Urea Nitrogen (BUN) 10 7 - 25 mg/dL [facility] Creatinine 0.71 0.50 - 1.03 mg/dL [facility] Creatinine w/ eGFR 99 > OR = 60 mL/min/1. 73m2 [facility] BUN/Creatinine Ratio SEE NOTE: (calc) [facility] Comment: ?? Not Reported: BUN and Creatinine are within ?? reference range. ? Sodium 137 135 - 146 mmol/L [facility] Potassium 4.5 3.5 - 5.3 mmol/L [facility] Chloride 99 98 - 110 mmol/L [facility] CO2 29 20 - 32 mmol/L [facility] Calcium 9.7 8.6 - 10.4 mg/dL [facility] Protein, Total 7.6 6.1 - 8.1 g/dL [facility] Albumin 4.3 3.6 - 5.1 g/dL [facility] Globulin 3.3 1.9 - 3.7 g/dL (calc) [facility] Albumin/Globuli n Ratio 1.3 1.0 - 2.5 (calc) [facility] Bilirubin, Total 0.7 0.2 - 1.2 mg/dL [facility] Alkaline Phosphatase 87 37 - 153 U/L [facility] Aspartate Aminotrans (AST) 17 10 - 35 U/L [facility] Alanine Aminotrans (ALT) 30(H) 6 - 29 U/L [facility] Blood Blood specimen / Unknown 09/24/2024 9:25 AM EST 09/24/2024 9:27 AM EST Narrative [facility] - 09/25/2024 12:23 AM EST [place]; DR SHILOH RIVERA FASTING:YES FASTING: YES Donte Cheung MD LAB BLOOD ORDERABLES [facility] [address] [place] [address] from Last 3 Months Care Teams Double Reamer Operator Relationship Specialty Start Date End Date Zana Lee MD [address] [place] [address] PCP - General Internal Medicine 08/09/18 Donte Cheung MD [address] [place] [address] Endocrinology 12/10/23 Rashid Louis OD [address] [place] [address] 05/09/24
--- OUTSIDE RECORDS SUMMARY | 2024-12-18 09:58 | XMS_ITS | Encounter Summary ---
Author Organization [facility] Address [address] [place] [id number] Care Team Providers Care Social Worker Psychiatric Name Role Phone Zana Lee MD Primary Care Provider [phone] Donte Cheung MD Unavailable Rashid Louis OD Unavailable [phone] Reason for Visit * Reason Comments Medication Refill Encounter Details Date Type Department Care Team (Late Contact Info) Description 12/11/2024 Refill [facility] Endocrinology [address] [phone] Donte Cheung MD [address] [place] [phone] Type 2 diabetes mellitus with hyperglycemia, without long-term current use of insulin (HCC) Social History Tobacco Use Types Packs/Day Years [...] Description 02/11/2025 3:15 PM EDT Office Visit [facility] Endocrinology [address] [address] Donte Cheung MD [address] [address] documented as of this encounter Visit Diagnoses Diagnosis Type 2 diabetes mellitus with hyperglycemia, without long-term current use of insulin (HCC) documented in this encounter Care Teams Social Worker Psychiatric Relationship Specialty Start Date End Date Zana Lee MD [address] [place] [address] PCP - General Internal Medicine 08/09/18 Donte Cheung MD [address] [address] Endocrinology 12/10/23 Rashid Louis OD [address] [place] [address] 05/09/24 documented as of this encounter
--- OUTSIDE RECORDS SUMMARY | 2024-12-18 09:58 | XMS_ITS | Encounter Summary ---
Author Organization [facility] Address [address] [place] [address] Care Team Providers Care Breaster Name Role Phone Zana Lee MD Primary Care Provider [phone] Donte Cheung MD Unavailable Rashid Louis OD Unavailable [phone] Encounter Details Date Type Department Care Team (Late st Contact Info) Description 09/06/2024 Scanned Document [address] [place] [phone] Provider, Generic Social History Tobacco Use [...] Office Visit [facility] Endocrinology [address] [place] [phone] Donte Cheung MD [address] [place] [address] [address] [place] [address] documented as of this encounter Visit Diagnoses Not on filedocumented in this encounter Care Teams Breaster Relationship Specialty Start Date End Date Zana Lee MD [address] [place] [address] PCP - General Internal Medicine 08/09/18 Donte Cheung MD [address] [place] [address] Endocrinology 12/10/23 Rashid Louis OD [address] [place] [address] 05/09/24 documented as of this encounter
--- OUTSIDE RECORDS SUMMARY | 2024-12-18 09:58 | XMS_ITS | Encounter Summary ---
Author Organization [facility] Address [address] [place] [address] Care Team Providers Care Admitting Representative Name Role Phone Zana Lee MD Primary Care Provider Donte Cheung MD Unavailable Rashid Louis OD Unavailable [phone] Encounter Details Date Type Department Care Team (Late Contact Info) Description 02/22/[address] [phone] Donte Cheung MD [address] [place] [phone] Social History Tobacco Use Types Packs/Day Years [...] Description 02/11/2025 3:15 PM EDT Office Visit [facility] Endocrinology [address] [place] [address] Donte Cheung MD 100 [facility] [address] [address] documented as of this encounter Visit Diagnoses Not on filedocumented in this encounter Care Teams Admitting Representative Relationship Specialty Start Date End Date Zana Lee MD [address] [place] [address] PCP - General Internal Medicine 08/09/18 Donte Cheung MD [address] [address] Endocrinology 12/10/23 Rashid Louis OD [address] [place] [address] 05/09/24 documented as of this encounter
--- OUTSIDE RECORDS SUMMARY | 2024-12-18 09:58 | XMS_ITS | Encounter Summary ---
Author Organization [facility] Address [address] [place] [address] Care Team Providers Care Decorating Machine Operator Name Role Phone Zana Lee MD Primary Care Provider Donte Cheung MD Unavailable Rashid Louis OD Unavailable [phone] Encounter Details Date Type Department Care Team (Late Contact Info) Description 12/05/2024 Refill [facility] Endocrinology [address] [phone] Donte Cheung MD [address] [place] [address] Type 2 diabetes mellitus with hyperglycemia, without long-term current use of insulin (HCC) (Primary Dx) Social History Tobacco Use Types Packs/Day Years [...] Description 02/11/2025 3:15 PM EDT Office Visit [facility] Endocrinology [address] [phone] Donte Cheung MD [address] [address] documented as of this encounter Visit Diagnoses Diagnosis Type 2 diabetes mellitus with hyperglycemia, without long-term current use of insulin (HCC)- Primary documented in this encounter Care Teams Decorating Machine Operator Relationship Specialty Start Date End Date Zana Lee MD [address] [place], [place] [phone] PCP - General Internal Medicine 08/09/18 Donte Cheung MD [address] [address] Endocrinology 12/10/23 Rashid Louis OD [address] [place] [address] 05/09/24 documented as of this encounter
--- OUTSIDE RECORDS SUMMARY | 2024-12-18 09:58 | XMS_ITS | Encounter Summary ---
Author Organization [facility] Address [address] [place] [address] Care Team Providers Care Rug Setter Velvet Name Role Phone Zana Lee MD Primary Care Provider [phone] Donte Cheung MD Unavailable Rashid Louis OD Unavailable [phone] Encounter Details Date Type Department Care Team (Late Contact Info) Description 12/12/2024 Refill [facility] Endocrinology [address] [phone] Donte Cheung MD [address] [place], [place] [phone] Social History Tobacco Use Types Packs/Day Years [...] Description 02/11/2025 3:15 PM EDT Office Visit [facility] Endocrinology [address] [phone] Donte Cheung MD [address] [place] [address] documented as of this encounter Visit Diagnoses Not on filedocumented in this encounter Care Teams Rug Setter Velvet Relationship Specialty Start Date End Date Zana Lee MD [address] [place] [address] PCP - General Internal Medicine 08/09/18 Donte Cheung MD [address] [address] Endocrinology 12/10/23 Rashid Louis OD [address] [place] [address] 05/09/24 documented as of this encounter
== END 2024-12-18 09:47 | disposition home or self-care (01) ==
PROVIDERS: PCP Physician Assistant Medical; Visit Provider Psychiatry & Neurology Neurology
DX: R25.1 Tremor, unspecified (principal)
CPT/HCPCS: 99204

== ENCOUNTER → 2024-12-18 09:14 | Outpatient (BNVA) | payer BC, SELFPAY | PROVIDERS: PCP Physician Assistant Medical; Visit Provider Psychiatry & Neurology Neurology ==